=== PATIENT | female | born 1965 | race Caucasian/White ===

== ENCOUNTER 2017-10-24 10:29 | Emergency (ER) | payer OTHER ==
--- NOTE | 2017-10-24 10:53 | EDM.PDOC ---
ED HPI GENERAL MEDICAL PROBLEM - General Chief Complaint: Upper Extremity Injury/Pain Stated Complaint: FALL Time Seen by Provider: 10/24/17 10:47 Source of Information: Reports: Patient History Limitations: Reports: No Limitations - History of Present Illness INITIAL COMMENTS - FREE TEXT/NARRATIVE: HISTORY AND PHYSICAL: [] 51-year-old female presents after having fallen and hit her head History of Present Illness: []Patient was exiting her camper trailer and slipped, striking her the side of her head on the side of the slideout. No loss of consciousness Tetanus vaccine less than 5 years ago Patient is not on blood thinners Review of Systems: As per history of present illness and below otherwise all systems reviewed and negative. Past medical history: As per history of present illness and as reviewed below otherwise noncontributory. Surgical history: As per history of present illness and as reviewed below otherwise noncontributory. Social history: No reported history of drug or alcohol abuse. Family history: As per history of present illness and as reviewed below otherwise noncontributory. Physical exam: Alert and oriented female answering questions appropriately in full sentences. no shortness of breath. Nontoxic in appearance. HEENT: Atraumatic, normocehpalic, pupils reactive, negative for conjunctival pallor or scleral icterus, mucous membranes moist, throat clear, neck supple, nontender, trachea midline. No nystagmus no change in vision. PERRLA. Neurologic is grossly intact. Slight tenderness with palpation on scalp where patient hit the trailer. There is no motion to her skull. Lungs: Clear to auscultation, breath sounds equal bilaterally, chest non tender. Heart: S1S2, regular, negative for clicks, rubs, or JVD. Abdomen: Soft, nondistended, nontender. Negative for masses or hepatossplenmegaly. Negative for costovertebral tenderness. Pelvis: Stable nontender. Genitourinary: Deferred. Rectal: Deferred Extremities: Atraumatic, negative for cords or calf pain. Mild abrasion to right elbow. Slight tenderness to right hip. Patient walked in the emergency department without any difficulties can walk heel to toe. Neurovascular unremarkable. Neuro: Awake, alert, oriented. Cranial nerves II through XII unremarkable. Cerebellum unremarkable. Motor and sensory unremarkable throughout. Exam nonfocal. Offer a head CT scan was declined Any change in mental status region headache vomiting continuously she'll need to repeat report back immediately and we will get the scan. patient and been are agreeable to this recommended course of action. Diagnostics: [] Therapeutics: [] Impression: []Multiple contusion small abrasions Plan: []Discharge home Return to the emergency department should any change in mental status occur Tylenol for discomfort Definitive disposition and diagnosis as appropriate pending reevaluation and review of above. Onset: Today, Sudden Duration: Minutes: (30) Location: Reports: Head Right Shoulder Pain Score (Numeric/FACES): 4 - Related Data Allergies Allergy/AdvReac Type Severity Reaction Status Date / Time No Known Allergies Allergy Verified 10/24/17 10:42 Home Meds: Home Meds ClonazePAM [KlonoPIN] 1 mg PO TID PRN 01/22/15 [History] DULoxetine [Cymbalta] 30 mg PO BID 01/22/15 [History] Past Medical History Psychiatric History: Reports: Anxiety - Infectious Disease History Infectious Disease History: Reports: Chicken Pox, Measles, Mumps, Scarlet Fever - Past Surgical History GI Surgical History: Reports: Cholecystectomy Female Surgical History: Reports: Section Other Female Surgeries/Procedures: hx laparoscopy for pelvic pain Social & Family History - Tobacco Use Smoking Status *Q: Never Smoker - Caffeine Use Caffeine Use: Reports: Soda - Recreational Drug Use Recreational Drug Use: No Review of Systems - Review of Systems Review Of Systems: ROS reveals no pertinent complaints other than HPI. ED EXAM, GENERAL - Physical Exam Exam: See Below (See dictation) Course - Vital Signs Last Recorded V/S: Last Vital Signs Temp 36.6 C 10/24/17 10:39 Pulse 81 10/24/17 10:39 Resp 18 10/24/17 10:39 BP 139/70 10/24/17 10:39 Pulse Ox 97 10/24/17 10:39 Departure - Departure Time of Disposition: 10:53 Disposition: Home, Self-Care 01 Condition: Good Clinical Impression: Multiple contusions - Discharge Information Referrals: PCP,None [Primary Care Provider] - Additional Instructions: The following information is given to patients seen in the emergency department who are being discharged to home. This information is to outline your options for follow-up care. We provide all patients seen in our emergency department with a follow-up referral. The need for follow-up, as well as the timing and circumstances, are variable depending upon the specifics of your emergency department visit. If you don't have a primary care physician on staff, we will provide you with a referral. We always advise you to contact your personal physician following an emergency department visit to inform them of the circumstance of the visit and for follow-up with them and/or the need for any referrals to a consulting specialist. The emergency department will also refer you to a specialist when appropriate. This referral assures that you have the opportunity for followup care with a specialist. All of these measure are taken in an effort to provide you with optimal care, which includes your followup. Under all circumstances we always encourage you to contact your private physician who remains a resource for coordinating your care. When calling for followup care, please make the office aware that this follow-up is from your recent emergency room visit. If for any reason you are refused follow-up, please contact the [facility] emergency department at and asked to speak to the emergency department charge nurse. Tylenol for discomfort Any change in mental status he'll need to return for further evaluation and CT scan
[2017-10-24 11:06] VITALS: BP 120/72
== END 2017-10-24 11:00 | disposition home or self-care (01) ==
LOC: MW.ED 10:29
DX: S00.03XA Contusion of scalp, initial encounter (principal); S40.011A Contusion of right shoulder, initial encounter; S50.01XA Contusion of right elbow, initial encounter; S70.01XA Contusion of right hip, initial encounter; W01.10XA Fall on same level from slipping, tripping and stumbling with subsequent striking against unspecified object, initial encounter
CPT/HCPCS: 99283

== ENCOUNTER 2019-07-16 18:16 | Emergency (ER) | payer OTHER ==
--- NOTE | 2019-07-16 19:07 | EDM.PDOC ---
ED HPI GENERAL MEDICAL PROBLEM - General Chief Complaint: Respiratory Problem Stated Complaint: COUGH Time Seen by Provider: 07/16/19 18:57 Source of Information: Reports: Patient History Limitations: Reports: No Limitations - History of Present Illness INITIAL COMMENTS - FREE TEXT/NARRATIVE: This is a 53-year-old female who presents the emergency room with a cough fever shortness of breath and diarrhea. Patient states that her daughter about 15 days ago was on a cruise ship and that she had flu tested positive for davalos virus. This was on a previous in department. They were not quarantined. The daughter was sick for 2 weeks and stated home. The patient was exposed to her daughter. The patient has no history of diabetes, heart disease, hypertension, immunosuppressants, and the patient is not on steroids. The patient states that she has not had a flu shot because she is scared of needles. Onset: Today Duration: Day(s): (2) Location: Reports: Head, Chest Quality: Reports: Ache Severity: Mild Worsens with: Reports: None Associated Symptoms: Reports: No Other Symptoms lungs Pain Score (Numeric/FACES): 4 - Related Data Allergies Allergy/AdvReac Type Severity Reaction Status Date / Time No Known Allergies Allergy Verified 07/16/19 18:23 Home Meds: Home Meds ClonazePAM [KlonoPIN] 1 mg PO TID PRN 01/22/15 [History] DULoxetine [Cymbalta] 30 mg PO BID 01/22/15 [History] Past Medical History Psychiatric History: Reports: Anxiety - Infectious Disease History Infectious Disease History: Reports: Mumps, Scarlet Fever - Past Surgical History GI Surgical History: Reports: Cholecystectomy Female Surgical History: Reports: Section Other Female Surgeries/Procedures: hx laparoscopy for pelvic pain Musculoskeletal Surgical History: Reports: Other (See Below) Other Musculoskeletal Surgeries/Procedures:: foot surgery Social & Family History - Family History Family Medical History: Noncontributory - Tobacco Use Smoking Status *Q: Former Smoker Used Tobacco, but Quit: Yes Month/Year Tobacco Last Used: 2009 - Caffeine Use Caffeine Use: Reports: Soda - Recreational Drug Use Recreational Drug Use: No ED ROS GENERAL - Review of Systems Review Of Systems: See Below Constitutional: Reports: Fever, Chills, Weakness, Fatigue, Night Sweats HEENT: Reports: Throat Pain Respiratory: Reports: Shortness of Breath, Cough Cardiovascular: Reports: No Symptoms Endocrine: Reports: No Symptoms GI/Abdominal: Reports: Diarrhea : Reports: No Symptoms Musculoskeletal: Reports: No Symptoms Skin: Reports: No Symptoms Neurological: Reports: No Symptoms Psychiatric: Reports: No Symptoms Hematologic/Lymphatic: Reports: No Symptoms Immunologic: Reports: No Symptoms ED EXAM, GENERAL - Physical Exam Exam: See Below Exam Limited By: No Limitations General Appearance: Alert, WD/WN, No Apparent Distress Eye Exam: Bilateral Eye: Normal Fundi, Normal Inspection, PERRL Ear Exam: Bilateral Ear: Auricle Normal, Canal Normal Nose: Normal Inspection, Normal Mucosa, No Blood Throat/Mouth: Normal Inspection, Normal Lips, Normal Teeth, Normal Oropharynx, Normal Voice, No Airway Compromise Neck: Normal Inspection, Supple, Non-Tender Respiratory/Chest: No Respiratory Distress, Lungs Clear, Normal Breath Sounds, No Accessory Muscle Use Cardiovascular: Normal Peripheral Pulses, Regular Rate, Rhythm, No Edema, No JVD , No Murmur, No Rub GI/Abdominal: Normal Bowel Sounds (Female) Exam: Deferred Rectal (Female) Exam: Deferred Back Exam: Normal Inspection, Full Range of Motion Extremities: Normal Inspection, Normal Range of Motion, No Pedal Edema, Normal Capillary Refill Neurological: Alert, Oriented, CN II-XII Intact Psychiatric: Normal Affect, Normal Mood Skin Exam: Warm, Dry, Intact, Normal Color Lymphatic: No Adenopathy Course - Vital Signs Text/Narrative:: 53-year-old female is negative for flu. Patient came in with shortness of breath cough and possible exposure with her daughter on a cruise ship. Patient states that she has had a fever but no fever at this time. Patient has been swabbed for davalos virus. At this time does not meet criteria for admission. We will discharge the patient home instructed to self quarantine for 48 hours until the results are back Last Recorded V/S: Last Vital Signs Temp 98.8 F 07/16/19 18:25 Pulse 97 07/16/19 18:25 Resp 17 07/16/19 18:25 BP 131/88 07/16/19 18:25 Pulse Ox 95 07/16/19 18:25 - Orders/Labs/Meds Orders: Active Orders 24 hr Category Date Time Status CORONAVIRUS (COVID-19) PCR [MREF] Stat Lab 07/16/19 19:30 Received Isolation [COMM] Routine Oth 07/16/19 19:13 Active Departure - Departure Time of Disposition: 20:38 Disposition: Home, Self-Care 01 Condition: Good Clinical Impression: URI (upper respiratory infection) - Discharge Information Instructions: Viral Respiratory Infection, [id number] Referrals: PCP,None [Primary Care Provider] - Forms: ED Department Discharge Sepsis Event Note - Evaluation Sepsis Screening Result: No Definite Risk - Focused Exam Vital Signs: Vital Signs Temp Pulse Resp BP Pulse Ox 07/16/19 18:25 98.8 F 97 17 131/88 95 Date Exam was Performed: 07/16/19 Time Exam was Performed: 20:36 - My Orders Last 24 Hours: My Active Orders 07/16/19 19:13 Isolation [COMM] Routine 07/16/19 19:30 CORONAVIRUS (COVID-19) PCR [MREF] Stat - Assessment/Plan Last 24 Hours: My Active Orders 07/16/19 19:13 Isolation [COMM] Routine 07/16/19 19:30 CORONAVIRUS (COVID-19) PCR [MREF] Stat
--- NOTE | 2019-07-16 21:17 | CR ---
INDICATION: Shortness of breath TECHNIQUE: Chest radiograph 1 view COMPARISON: None FINDINGS: Mediastinum: The mediastinum is normal in appearance. The heart silhouette is normal in size and morphology. Lung: Both lungs are unremarkable in appearance. No sign of pleural effusion seen. No pneumothorax is identified. Bone and Soft tissue: Unremarkable for age. IMPRESSION: 1. No acute cardiopulmonary disease is seen. Clinical follow-up recommended as this does not exclude COVID-19. Dictated by: Brennan Leon MD @ 07/16/2019 21:16:00 (Electronically Signed)
[2019-07-16 21:38] VITALS: BP 126/80; PULSE 82
== END 2019-07-16 21:25 | disposition home or self-care (01) ==
LOC: MW.ED 18:16
DX: J06.9 Acute upper respiratory infection, unspecified (principal); F41.9 Anxiety disorder, unspecified; Z87.891 Personal history of nicotine dependence; Z79.899 Other long term (current) drug therapy; Z20.828 Contact with and (suspected) exposure to other viral communicable diseases
CPT/HCPCS: 71045; 71045-26; 87804; 99283; 99285-25; U0001; U0002